=== PATIENT | male | born 1940 | race Caucasian/White ===

== ENCOUNTER 2024-05-17 14:24 | Emergency (ER) | payer MEDICARE, OTHER ==
[~2024-05-17] VITALS: Ht 167.6 cm; Wt 54.4 kg
[2024-05-17] MEDS ORDERED: DIATR MEGLU/DIATRIZOATE SODIUM 30 ML BOTTLE ONE (15:54)
[2024-05-17 18:21] VITALS: BP 103/61; PULSE 74; RESP 16; TEMP 98.1; O2SAT 100
== END 2024-05-17 20:31 ==
LOC: EDH 14:24
DX: K94.23 Gastrostomy malfunction (principal); E78.00 Pure hypercholesterolemia, unspecified; F03.90 Unspecified dementia, unspecified severity, without behavioral disturbance, psychotic disturbance, mood disturbance, and anxiety; I10 Essential (primary) hypertension
CPT/HCPCS: 99284; 43762; 74018; Q9963